=== PATIENT | female | born 1995 | race Caucasian/White ===

== ENCOUNTER → 2020-03-03 11:05 | Outpatient (BNVA) | payer MEDICAID, SELFPAY | PROVIDERS: Family Provider Family Medicine; Visit Provider Obstetrics & Gynecology | DX: R87.610 Atypical squamous cells of undetermined significance on cytologic smear of cervix (ASC-US) (principal) | CPT/HCPCS: 88175 ==

== ENCOUNTER 2021-02-15 08:06 | Outpatient (CLI) | payer MEDICAID, SELFPAY ==
--- NOTE | 2021-02-15 08:14 | US_ITS ---
WS: [id number] EARLY OBSTETRICAL ULTRASOUND (<14 WEEKS). HISTORY: DATING COMPARISON: None available. Single intrauterine gestational sac is identified. Cardiac activity at 185. Prewitt-rump length measure s 4.5 cm which corresponds to a gestation of 11 weeks 2 days. Normal-appearing yolk sac and amnion d emonstrated. No subchorionic hemorrhage. No free fluid. Both ovaries are identified and unremarkable. Cervix is closed. No free fluid. Neither ovary is identified. US/ OB limited [id number] IMPRESSION: 1. Single intrauterine gestation of 11 weeks 2 days with an EDC of 09/04/2021. 2. No abnormality.
== END 2021-02-15 08:07 | disposition home or self-care (01) ==
LOC: US 08:09
PROVIDERS: PCP Family Medicine; Visit Provider Family Medicine
DX: Z36.87 Encounter for antenatal screening for uncertain dates (principal); Z3A.11 11 weeks gestation of pregnancy
CPT/HCPCS: 76815

== ENCOUNTER 2021-05-04 07:01 | Outpatient (CLI) | payer MEDICAID, SELFPAY ==
--- NOTE | 2021-05-04 07:08 | US_ITS ---
WS: [id number] ULTRASOUND OB COMPLETE TECHNIQUE: Complete ultrasound. CLINICAL INFORMATION: ENCOUNTER FOR SUPERVISION OF OTHER NORMAL PREG 2ND TRIMESTER COMPARISON: None. FINDINGS: Cervix measures 4.6 cm Single interuterine gestation is identified with breech presentation. Placenta is posterior fundal. Placenta grade 0. Normal amniotic fluid volume. cardiac activity: 141 BPM. AGA: 22w3d SHIVA by ultrasound: 09/04/2021 Estimated weight: 504 g BDP: 5.3 cm = 22w1d HC: 20.2 cm = 22w3d AC: 17.5 cm = 22w3d FEMUR LENGTH: 3.9 cm = 22w3d Anatomic survey: Anatomic survey is normal. Normal stomach. Kidneys and bladder are normal. Normal 3 vessel cord. Norm al 3 vessel cord insertion. Normal 4 chamber heart. Normal spine. Intracranial contents are normal. N ormal posterior fossa and cisterna magna. US/US OB >= 14 weeks fetus [id number] IMPRESSION: 1. Single intrauterine with visualized cardiac activity. AGA 22w3d w ith SHIVA 09/04/2021. 2. Placenta is posterior fundal. No evidence of abruption or previa. 3. presentation is breech. 4. Cervix is long and closed measuring 4.6 CM. 5. anatomic survey is normal. 6. Normal amniotic fluid volume.
== END 2021-05-04 07:02 | disposition home or self-care (01) ==
PROVIDERS: PCP Family Medicine; Visit Provider Family Medicine
DX: Z34.82 Encounter for supervision of other normal pregnancy, second trimester (principal); Z3A.22 22 weeks gestation of pregnancy
CPT/HCPCS: 76805

== ENCOUNTER 2023-02-15 09:28 | Emergency (ER) | payer MEDICAID, SELFPAY ==
[2023-02-15 09:35] VITALS: BP 142/82; PULSE 88; O2SAT 96
--- NOTE | 2023-02-15 09:38 | ED_ITS ---
HPI - Female Genitourinary General: Chief complaint: Urogenital-Female Stated complaint: urinary pain Time Seen by Provider: 02/15/23 09:30 Source: patient Mode of arrival: ambulatory Limitations: no limitations History of Present Illness: Patient is a 28-year-old female presents to ED today with a concern of a possible urinary tract infection. Patient states she frequently gets urinary tract infections especially when . She has been prescribed AZO and cranberry/probiotic packets. Interestingly enough she states she has never been placed on antibiotics for these infections nor has she ever had a urine culture performed. She states her symptoms today include urinary urgency and hesitancy as well as some mild dysuria. She states she woke up this morning with some discomfort to her right flank and decided to seek medical evaluation. Upon arrival she states her flank pain has subsided. Patient is not running fevers. She did have one episode of vomiting this morning. Denies vaginal discharge or vaginal bleeding. She states on her routine UAs performed through OB on previous pregnancies she was told she always had blood in her urine and nobody could ever figure out why . MD elicited complaint: dysuria and other (urinary urgency/hesitancy) Onset (ago): day(s) Severity: mild Consistency: intermittent Vaginal discharge: none Vaginal bleeding: none Urinary symptoms: Dysuria and Urgency Exacerbating factors: urination Relieving factors: none Associated symptoms: Reports nausea; Deny abdominal pain, headache(s) or vaginal discharge Treatment prior to arrival: none Sexual activity: Yes (monogamous with ) Patient : Yes Review of Systems Const: Denies: fever(s), chills, body aches, fatigue or malaise Card: Denies: chest pain Resp: Denies: dyspnea GI: Reports: nausea and vomiting (x 1); Denies: abdominal pain, hematemesis or diarrhea : Reports: flank pain (subsided upon arrival), difficulty voiding, dysuria, urinary urgency and urinary hesitancy; Denies: urinary frequency, vaginal odor, vaginal bleeding, vaginal discharge or pelvic pain Musc: Denies: neck pain, extremity pain or joint pain Skin/Breast: Denies: rash Neuro: Denies: headache(s), numbness in extremities, weakness in extremities or sensory changes PFS ED PFSH: Medical History No pertinent past medical history Denies: high blood pressure, diabetes, heart, lung, liver, kidney, thyroid, bleeding problems, clotting problems, or genital herpes PCP: Dr. Jordan Groves Surgical History No history of previous surgery Family History Family/Other Diabetes Maternal aunt Thyroid condition Paternal aunt Breast cancer Maternal great aunt Grandfather Diabetes Maternal Denies family history of Colon cancer Ovarian cancer Heart disease Hyperlipidemia Hypertension Uterine cancer Social History Smoking and tobacco status: never smoked Alcohol intake: never Additional social history: - Tobacco Use: Denies current or past use Drug Use: Denies Alcohol Use: Denies Work/Study Status: Stay at home mother Physical Exam Const: COMMON NORMALS: no acute distress, average body habitus, patient oriented x3, no limitations, healthy appearing, alert and well nourished HENMT: COMMON NORMALS: normocephalic and atraumatic HEAD & SCALP: normal to inspection, normocephalic and atraumatic Resp: COMMON NORMALS: normal respiratory effort and clear to auscultation bilaterally AUSCULTATION: clear to auscultation bilaterally Cardio: COMMON NORMALS: regular rate and regular rhythm RATE: regular rate RHYTHM: regular rhythm GI: COMMON NORMALS: Normal to inspection, nondistended, normoactive bowel sounds present, Soft to palpation, non-tender, No hepatosplenomegaly present and no masses INSPECTION: Yes normal to inspection and Yes gravid abdomen PALP ATION: Yes Soft to palpation and Yes No hepatosplenomegaly present : BLADDER/KIDNEY EXAM: Yes CVA tenderness (extremely mild pain below R CVA; question musculoskeletal back pain) Back/Pelvis: COMMON NORMALS: thoracic and lumbar spine normal to inspection, no thoracic nor lumbar tenderness and thoraco-lumbar ROM normal GENERAL BACK: Yes CVA tenderness (extremely mild pain below R CVA; question musculoskeletal back pain) Extremity: COMMON NORMALS: normal to inspection Neuro: COMMON NORMALS: patient oriented x3 SENSORIUM/ORIENTATION: Yes alert Skin: COMMON NORMALS: no rashes or lesions noted GENERAL SKIN EXAM: no rashes or lesions noted Course Vital Signs: Vital signs: Vital Signs Temperature 98.2 F 02/15/23 09:48 Pulse Rate 80 02/15/23 10:35 Blood Pressure 114/77 02/15/23 10:35 Pulse Oximetry 99 02/15/23 10:35 Oxygen Delivery Me thod Room Air 02/15/23 10:35 MDM - Female Medical Decision Making Patient here with complaints of urinary urgency, hesitancy, and dysuria. She reportedly has had identical symptoms many times in the past that she treats with AZO and cranberry probiotics. Interestingly enough she states she has never been on antibiotics nor has ever had a urine culture performed that she is aware of. Patient had some right flank pain earlier this morning that has subsided at time of my examination. It was slightly reproducible with percussion. Patient's vital signs are completely normal. Blood work shows a normal white count. Chemistry panel is unremarkable. UA showing significant color interference due to her AZO use. Does report 2+ blood and positive nitrates (comment on color interference). She is negative for leukocyte esterase. 0-4 WBCs and trace bacteria. Ultimately at this time I think UA is equivocal for acute cystitis however based on her symptoms and risk factor, I would rather err on the side of caution and place her on antibiotics at least until culture results are obtained. I did go ahead and obtain renal US which was completely normal. Strict return ED precautions were given including worsening flank pain, fevers, repetitive episodes of vomiting, abdominal pain, generally feeling worse or unwell. Strict instructions to follow-up with primary care or her OB/psychiatric arnp for re-evaluation this week. Patient verbalized understanding of precautions. Lab Data 02/15/23 10:11 02/15/23 10:11 Radiology Impressions Renal Ultrasound 02/15/23 10:34 IMPRESSION: Normal renal ultrasound Laboratory Results WBC 8.2 10^3/uL (4.0-10.0) 02/15/23 10:11 RBC 3.80 10^6/uL (4.1-5.3) L 02/15/23 10:11 Hgb 11.5 g/dL (11.5-15.3) 02/15/23 10:11 Hct 34.8 % (37.0-47.0) L 02/15/23 10:11 MCV 91.6 fl (81-99) 02/15/23 10:11 MCH 30.3 pg (28.0-34.0) 02/15/23 10:11 MCHC 33.0 g/dL (30.0-36.0) 02/15/23 10:11 RDW 12.4 % (12.1-15.1) 02/15/23 10:11 Plt Count 258 10^3/cmm (130-400) 02/15/23 10:11 MPV 10.1 fL (7.4-10.4) 02/15/23 10:11 Neut % (Auto) 77.0 % 02/15/23 10:11 Lymph % (Auto) 15.9 % 02/15/23 10:11 Craven % (Auto) 6.0 % 02/15/23 10:11 Eos % (Auto) 0.6 % 02/15/23 10:11 Baso % (Auto) 0.1 % 02/15/23 10:11 Neut # (Auto) 6.31 10^3/uL (1.8-7.7) 02/15/23 10:11 Lymph # (Auto) 1.3 10^3/uL (0.8-4.8) 02/15/23 10:11 Craven # (Auto) 0.5 10^3/uL (0.2-0.9) 02/15/23 10:11 Eos # (Auto) 0.1 10^3/uL (0.0-0.8) 02/15/23 10:11 Baso # (Auto) 0.0 10^3/uL (0.0-0.1) 02/15/23 10:11 Nucleated RBC % (auto) 0 % 02/15/23 10:11 Nucleated RBCs # 0.0 /100WBC 02/15/23 10:11 Sodium 140 mmol/L (136-145) 02/15/23 10:11 Potassium 4.6 mmol/L (3.5-5.1) 02/15/23 10:11 Chloride 107 mmol/L (98-107) 02/15/23 10:11 Carbon Dioxide 24 mmol/L (22-29) 02/15/23 10:11 Anion Gap 13.6 (5-19) 02/15/23 10:11 BUN 6 mg/dL (6-20) 02/15/23 10:11 Creatinine 0.4 mg/dL (0.5-0.9) L 02/15/23 10:11 GFR Calculation 191.5 mL/min (90-130) H 02/15/23 10:11 Glucose 84 mg/dL (65-115) 02/15/23 10:11 Calculated Osmolality 287 mOsm/kg (285-295) 02/15/23 10:11 Calcium 8.7 mg/dL (8.5-10.5) 02/15/23 10:11 Total Bilirubin 0.2 mg/dL (0.15-1.2) 02/15/23 10:11 AST 13 U/L (0-32) 02/15/23 10:11 ALT 9 U/L (0-33) 02/15/23 10:11 Alkaline Phosphatase 50 U/L (35-105) 02/15/23 10:11 Total Protein 6.8 g/dL (6.6-8.7) 02/15/23 10:11 Albumin 3.8 g/dL (3.5-5.2) 02/15/23 10:11 Globulin 3.0 g/dL (1.3-4.6) 02/15/23 10:11 Urine Color [place] (Yellow) 02/15/23 09:45 Urine Appearance Clear (CLEAR) 02/15/23 09:45 Urine pH 5 (5-7) 02/15/23 09:45 Ur Specific Scenic 1.015 (1.005-1.030) 02/15/23 09:45 Urine Protein 1+ (Negative) H 02/15/23 09:45 Urine Glucose (UA) Norm (Normal) 02/15/23 09:45 Urine Ketones Negative (Negative) 02/15/23 09:45 Urine Blood 2+ (Negative) H 02/15/23 09:45 Urine Nitrate Positive (Negative) H 02/15/23 09:45 Urine Bilirubin 1+ (Negative) H 02/15/23 09:45 Urine Urobilinogen 1 mg/dL (Negative) H 02/15/23 09:45 Ur Leukocyte Esterase Negative (Negative) 02/15/23 09:45 Urine RBC 0-4 /hpf (0-2) H 02/15/23 09:45 Urine WBC 0-4 /hpf (0-5) H 02/15/23 09:45 Ur Squamous Epith Cells 0-4 /hpf (0-5) H 02/15/23 09:45 Amorphous Sediment Not Reportable 02/15/23 09:45 Urine Bacteria Trace /hpf (NONE) 02/15/23 09:45 Discharge Plan Discharge Patient Disposition: Home Clinical Impression: Urinary tract infection Qualifiers: Urinary tract infection type: acute cystitis Hematuria presence: with hematuria Qualified Code(s): N30.01 - Acute cystitis with hematuria Condition: Stable Prescriptions: New cephalexin 500 mg capsule 500 mg PO Q6H 10 Days Qty: 40 0RF No Action AZO Urinary Tract Defense 162-162.5 mg Tablet 1 tab PO BID PRN (Reason: uti symptoms) Cranberry Mannose+Probiotics P 1 packet PO TID Discharge Orders: Discharge ED (Routine); Ordered 02/15/23 Ordered By: Brea Pickering Referrals: Yamial Groves MD [Primary Care Provider] - Activity Restrictions/Additional Instructions: As we discussed I will have lab culture your urine for definitive confirmation for urinary tract infection as there was color interference on your urine analysis today from the Azo use. You need to monitor symptoms closely and return to the emergency department immediately for worsening flank pain, repetitive episodes of vomiting, fevers greater than 100.4, generally feeling ill or unwell, or any other concerns you may have. As we discussed please follow-up with your psychiatric arnp or primary care for repeat urine analysis by the end of the week. Coding Level of Care Code ED Air Analysis Technician for Melinda Ly
[2023-02-15 09:48] VITALS: TEMP 36.8
[2023-02-15 10:22] LABS: Add Urine Microscopic? YES; Bilirubin Urine 1+ (Negative); Blood Urine 2+ (Negative); Glucose Urine UA Norm (Normal); Ketones Urine Negative (Negative); Leukocyte Esterase Urine Negative (Negative); Protein Urine 1+ (Negative); Specific Gravity, Urine 1.015 (1.005-1.030); Urine Appearance Clear (CLEAR); Urine Color Orange (Yellow); Urobilinogen Urine 1 mg/dL (Negative); pH Urine 5 (5-7)
[2023-02-15 10:23] LABS: Nitrate Urine Positive (Negative)
[2023-02-15 10:25] LABS: Basophils % 0.1 %; Eosinophils # 0.1 10^3/uL (0.0-0.8); Eosinophils % 0.6 %; Hematocrit 34.8 % (37.0-47.0); Hemoglobin 11.5 g/dL (11.5-15.3); Lymphocytes # 1.3 10^3/uL (0.8-4.8); Lymphocytes % 15.9 %; Mean Corpuscular Hemoglobin 30.3 pg (28.0-34.0); Mean Corpuscular Volume 91.6 fl (81-99); Mean Platelet Volume 10.1 fL (7.4-10.4); Monocytes # 0.5 10^3/uL (0.2-0.9); Neutrophils # 6.31 10^3/uL (1.8-7.7); Nucleated Red Blood Cells % 0 %; Platelet Count 258 10^3/cmm (130-400); Red Cell Distribution Width 12.4 % (12.1-15.1); White Blood Count 8.2 10^3/uL (4.0-10.0)
[2023-02-15 10:30] LABS: RBC Urine 0-4 /hpf (0-2); WBC Urine 0-4 /hpf (0-5)
[2023-02-15 10:31] LABS: Add Urine Culture? No; Bacteria Urine TRACE /hpf; Squamous Epithelial Cell Urine 0-4 /hpf (0-5)
--- NOTE | 2023-02-15 10:34 | US_ITS ---
WS: [id number] ULTRASOUND RENAL TECHNIQUE: Ultrasound examination of both kidneys. CLINICAL INFORMATION: R flank pain COMPARISON: None. FINDINGS: RIGHT: Right kidney is normal in size and appearance. Echogenicity: Normal. Cortical thickness: 1.5 cm; Normal. Hydronephrosis: None. Perinephric fluid: None. Right kidney measures: 11.1 cm x 5.7 cm x 5.4 cm. LEFT: Left kidney is normal in size and appearance. Echogenicity: Normal. Cortical thickness: 1.8 cm; Normal. Hydronephrosis: None. Perinephric fluid: None. Left kidney measures: 11.0 cm x 4.5 cm x 5.9 cm. Normal visualized aorta. Normal bladder. US/US renal BI* [id number] IMPRESSION: Normal renal ultrasound
[2023-02-15 10:35] VITALS: BP 114/77; PULSE 80; O2SAT 99
[2023-02-15 10:49] LABS: Alanine Aminotransferase 9 U/L (0-33); Albumin Level 3.8 g/dL (3.5-5.2); Alkaline Phosphatase 50 U/L (35-105); Anion Gap 13.6 (5-19); Aspartate Amino Transferase 13 U/L (0-32); Blood Urea Nitrogen 6 mg/dL (6-20); Calcium 8.7 mg/dL (8.5-10.5); Carbon Dioxide 24 mmol/L (22-29); Chloride 107 mmol/L (98-107); Glomerular Filtration Rate 191.5 mL/min (90-130); Glucose 84 mg/dL (65-115); Osmolality Calculated 287 mOsm/kg (285-295); Potassium 4.6 mmol/L (3.5-5.1); Sodium 140 mmol/L (136-145); Total Bilirubin 0.2 mg/dL (0.15-1.2); Total Protein 6.8 g/dL (6.6-8.7)
[2023-02-15 11:31] VITALS: BP 109/67; PULSE 75; O2SAT 99
== END 2023-02-15 11:32 | disposition home or self-care (01) ==
PROVIDERS: Emergency Provider Physician Assistant; PCP Family Medicine
DX: N30.01 Acute cystitis with hematuria (principal)
CPT/HCPCS: 36415; 76770; 80053; 81001; 85025; 87077; 87086; 87186; 99284